=== PATIENT | male | born 1980 | race Caucasian/White ===

== ENCOUNTER 2024-07-19 11:59 | Emergency (ER) | payer OTHER, SELFPAY ==
[2024-07-19] VITALS (14 sets, daily range): BP systolic 104–162; BP diastolic 71–99
--- NOTE | 2024-07-19 12:25 | ED.GENMED ---
History of Present Illness
<SUSANA Royal - Last Filed: 07/19/24 17:35>
General
Chief Complaint: Chest Pain
Source: patient
Time Seen by Provider: 07/19/24 12:25
Nursing documentation reviewed up to this point in time: agreed with
History of Present Illness
History of Present Illness:
44 yr old male presents to the ER for evaluation. Patient does have a history of migraines hypertension hyperlipidemia and reports a 30 this morning he was at work and started to get blurry vision and could not read and fell like he is getting a
migraine. He reports he has not had 1 in about 10 years. He then developed a frontal headache. He went home he took sumatriptan and then vomited. Since then patient complains of feeling nauseous headache dizzy. He also describes a sensation of
not being able to breathe when he wakes up. He describes falling asleep at home prior to arrival and would wake up gasping for air. He denies any associated chest pain. He did feel heaviness in his arms and tingling prior to arrival.
Patient presents to the ER with eyes closed will open upon command however complaining of feeling nauseous headache and tired. He does complain of light sensitivity. He denies any trauma or neck pain. Denies any recent chiropractor manipulation.
He denies any back pain double vision. Denies recent injury.
Past History
<SUSANA Royal - Last Filed: 07/19/24 17:35>
Past History
ED Past Medical History: HTN, Hypercholesterolemia, Other (Obesity) and Other (migraines)
ED Past Surgical History: Orthopedic
Social History
Tobacco: Other (Occasional smoker)
Alcohol: Occasional
Personal:
Living: with family
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
Family History
Family History: Hypertension; Negative Early CAD
Review of Systems
<SUSANA Royal - Last Filed: 07/19/24 17:35>
Review of Systems
Allergies reviewed?: Yes
Other source history: family
All Other Systems: ROS reviewed and negative except as documented in HPI and ROS
Constitutional: Reports no symptoms
Respiratory: Reports other ('will wake up from sleep and gasp for air ')
Cardiac: Reports no symptoms
ABD/GI: Reports nausea and vomiting
: Reports no symptoms
Musculoskeletal: Reports no symptoms
Neurological: Reports headache
Phy Exam
<SUSANA Roayl - Last Filed: 07/19/24 17:35>
General Physical Exam
General Presentation: no apparent distress
General age: appears stated age
General Skin: warm and dry
General Habitus: normal
General Mental: alert
General Hydration: appears well hydrated
Cardiovascular Exam
Cardiovascular Exam: regular rate/rhythm, no murmur and normal peripheral pulses
Pulmonary Exam
Pulmonary Exam: lungs clear and no respiratory distress
Neurological Exam
Neurological Exam: alert, oriented x3, no motor deficits, no sensory deficits and speech normal
Musculoskeletal Exam
Musculoskeletal Exam: full ROM
Skin Exam
Skin Exam: normal color and warm/dry
Psychiatric Exam
Psychiatric Exam: normal mood/affect
Scores
<SUSANA Royal - Last Filed: 07/19/24 17:35>
Heart Score for Chest Pain Patients
STEMI patient?: Not applicable
Course
<SUSANA Royal - Last Filed: 07/19/24 17:35>
Orders/Labs/Results
Orders:
Orders
07/19/24 12:00
Electrocardiogram (*1) Urgent
Reason for Study: Chest Pain
EKG- Treatment ONCE
07/19/24 12:19
Complete Blood Count/With Diff Urgent
Comprehensive Metabolic Panel Urgent
NT-proBNP Urgent
Comment: ADD ON
Troponin I Urgent
07/19/24 12:25
Add On- LAB Urgent
Tests Added?: BNP
07/19/24 12:35
Ondansetron Injectable [Zofran] 4 mg .ROUTE .STK-MED ONE
Ondansetron Injectable [Zofran] 4 mg .ROUTE .STK-MED ONE
07/19/24 12:38
CT Head W/o Iv Contrast Urgent
Comment:
Reason For Exam: headache
07/19/24 12:39
Ondansetron Injectable [Zofran] 4 mg IV NOW STA
07/19/24 12:42
Metoclopramide [Reglan] 10 mg IV NOW STA
07/19/24 12:43
0.9% Sodium Chloride 1000 ml [Nss] 1,000 ml IV BOLUS
Diphenhydramine [Benadryl] 25 mg IV NOW STA
07/19/24 12:47
Portable Chest Xray [CR Chest Portable - 1 View] Urgent
Comment:
Reason For Exam: sob
Reason Study Needs to be Portable: Unable to Transport
07/19/24 14:28
Dexamethasone Sod Phosphate [Decadron] 10 mg IV NOW STA
Ketorolac [Toradol] 15 mg IV NOW STA
Magnesium Sulfate 2 Gram/50 ml [Magnesium Sulfate] 2 gram in 50 ml IV NOW
07/19/24 16:21
NEUROLOGY CONSULT Urgent
Consulting Provider: Esteban Renteria
Was physician already notified: Yes
Abnormal Lab Results
07/19/24
12:19
MCH 31.2 H pg
(27.0-31.0)
MPV 10.7 H fL
(7.4-10.4)
Carbon Dioxide 20 L mmol/L
(22-30)
BUN 21 H mg/dl
(9-20)
Glucose 149 H mg/dl
(70-99)
Total Bilirubin 1.6 H mg/dl
(0.2-1.3)
07/19/24 12:19
07/19/24 12:19
Vital Signs
Initial and Last Documented VS:
Initial Vital Signs
Temp Pulse Resp BP Pulse Ox
98.0 F 76 16 139/79 98
07/19/24 12:05 07/19/24 12:05 07/19/24 12:05 07/19/24 12:05 07/19/24 12:05
Last Documented Vital Signs
Temp Pulse Resp BP Pulse Ox
98.0 F 66 26 161/83 98
07/19/24 12:05 07/19/24 16:00 07/19/24 16:00 07/19/24 16:00 07/19/24 12:05
Hand Edger consulted with Physician
Hand Edger consulted with physician?: Yes
Name of Physician Consulted: Monalisa
<Juan Sheldon MD - Last Filed: 07/19/24 14:33>
Orders/Labs/Results
Orders:
Orders
07/19/24 12:00
Electrocardiogram (*1) Urgent
Reason for Study: Chest Pain
EKG- Treatment ONCE
07/19/24 12:19
Complete Blood Count/With Diff Urgent
Comprehensive Metabolic Panel Urgent
NT-proBNP Urgent
Comment: ADD ON
Troponin I Urgent
07/19/24 12:25
Add On- LAB Urgent
Tests Added?: BNP
07/19/24 12:35
Ondansetron Injectable [Zofran] 4 mg .ROUTE .STK-MED ONE
Ondansetron Injectable [Zofran] 4 mg .ROUTE .STK-MED ONE
07/19/24 12:38
CT Head W/o Iv Contrast Urgent
Comment:
Reason For Exam: headache
07/19/24 12:39
Ondansetron Injectable [Zofran] 4 mg IV NOW STA
07/19/24 12:42
Metoclopramide [Reglan] 10 mg IV NOW STA
07/19/24 12:43
0.9% Sodium Chloride 1000 ml [Nss] 1,000 ml IV BOLUS
Diphenhydramine [Benadryl] 25 mg IV NOW STA
07/19/24 12:47
Portable Chest Xray [CR Chest Portable - 1 View] Urgent
Comment:
Reason For Exam: sob
Reason Study Needs to be Portable: Unable to Transport
07/19/24 14:28
Dexamethasone Sod Phosphate [Decadron] 10 mg IV NOW STA
Ketorolac [Toradol] 15 mg IV NOW STA
Magnesium Sulfate 2 Gram/50 ml [Magnesium Sulfate] 2 gram in 50 ml IV NOW
07/19/24 16:21
NEUROLOGY CONSULT Urgent
Consulting Provider: Esteban Renteria
Was physician already notified: Yes
Abnormal Lab Results
07/19/24
12:19
MCH 31.2 H pg
(27.0-31.0)
MPV 10.7 H fL
(7.4-10.4)
Carbon Dioxide 20 L mmol/L
(22-30)
BUN 21 H mg/dl
(9-20)
Glucose 149 H mg/dl
(70-99)
Total Bilirubin 1.6 H mg/dl
(0.2-1.3)
07/19/24 12:19
07/19/24 12:19
Vital Signs
Initial and Last Documented VS:
Initial Vital Signs
Temp Pulse Resp BP Pulse Ox
98.0 F 76 16 139/79 98
07/19/24 12:05 07/19/24 12:05 07/19/24 12:05 07/19/24 12:05 07/19/24 12:05
Last Documented Vital Signs
Temp Pulse Resp BP Pulse Ox
98.0 F 66 26 161/83 98
07/19/24 12:05 07/19/24 16:00 07/19/24 16:00 07/19/24 16:00 07/19/24 12:05
<SUSANA Royal - Last Filed: 07/19/24 17:35>
MDM/Problems Addressed
Differential Diagnosis Includes:
Not limited to migraine headache less likely intracranial hemorrhage
MDM/Problems Addressed:
Patient is document is a 44-year-old male who presented to the ER for evaluation. Patient does have a history of migraine however has not had a migraine headache in about 10 years. He presented very uncomfortable reported visual changes this
morning consistent with migraine and then developed a frontal headache. He was very nauseous and did vomit at home despite taking migraine medicine. He reported to the nurses that he felt short of breath however he describes this as sleeping
waking up from sleep and then feeling that he needs to gasp from air. He presented to the ER denying any shortness of breath on my exam lungs are clear he is nontachycardic nonhypoxic.. He had no complaints of chest pain. He had no trauma no
fevers. No neck pain noted just was on exam. Patient was eval by ED physician patient was treated for migraine, given Reglan Benadryl fluids however still had symptoms and was given steroids and magnesium.
On reexam patient does report that he feels better but reports still has the headache. pt was evaluated by DR Whitehead who inserted /sprayed marcaine in pt's nares.
pt feeling better on re-exam stable for d/c home.
Chronic conditions affecting care:
htn, migraines
<SUSANA Royal - Last Filed: 07/19/24 17:35>
*Radiology
Radiology exam reviewed: radiology read reviewed
*Pulse Oximetry
Patient hypoxic: no
*EKG
Interpreted by ED Provider?: Yes
Heart Rate: 75
Rate: normal
Rhythm: sinus
Ischemia: no ischemia
*Critical Care Note
Total Time (30-74mins, 75-104mins- exclusive of procedures): Not Applicable
ED Attending Note
<SUSANA Royal - Last Filed: 07/19/24 17:35>
-
Portions of this chart may have been created with voice recognition software.� Occasional wrong word or��sound alike� substitutions may have occurred due to the inherent limitations of voice recognition software.
<Juan Sheldon MD - Last Filed: 07/19/24 14:33>
ED Attending Note
Patient seen and examined by attending physician: Yes
ED Attending Note:
I have seen and evaluated the patient with a [id number] encounter. I have spoken to the advance practicer provider and involved in the medical history, the physical exam, medical decision making.
Evaluation and management service: agree unless noted differently below.
Results interpretation: agree unless noted differently below.
Focused HPI: 44-year-old male with a past medical history of hypertension, hyperlipidemia, migraines presents to the emergency room with his spouse for evaluation of headache. Patient reports that he was in his normal state of health when he woke
up this morning. He says around 8 AM he started to get visual aura and subsequently developed intense headache. He has a known history of migraines and he says that this is consistent with prior migraines however headache became very severe. He
says rarely does it escalate to the point that he feels the need to go to the ER�last had to come to the ER he says about 10 years ago. He started to get nausea and vomiting. He said while he was vomiting he started to feel like he was gasping for
air and was having some chest discomfort. He did take sumatriptan at around 8:30 AM shortly after onset of symptoms but symptoms were progressing which prompted him to come to the ER. Since arrival in the ER he did receive some Zofran he says
nausea has improved. He no longer feels any shortness of breath or chest discomfort now that nausea/vomiting has improved. He still has an intense headache however. He describes a frontal pressure sensation. Denies vision loss, focal weakness or
numbness or other complaints.
Physical exam: Sitting in a dark room with his eyes closed. Vital signs significant for marginal hypertension. Head is normocephalic and atraumatic. His pupils are equal round and reactive to light bilaterally, extraocular movements are intact.
Cranial nerves intact 2 through 12. Speech fluid no dysarthria or aphasia, motor and sensory intact in all extremities. He has no cardiac rubs gallops or murmurs and his lung sounds clear to auscultation bilaterally.
Medical Decision Makin-year-old male with history of migraines presents with severe headache consistent with prior migraines but more intense than usual. Last similar episode was about 10 years ago. Did not respond to sumatriptan at home. He
did have some transient shortness of breath/chest discomfort associated with nausea/vomiting but this has resolved. Vitals and exam as above. Labs sent off in triage including a CBC and a CMP which showed no clinically significant abnormalities.
He had a troponin which was undetectable. EKG shows sinus rhythm. Sent for CT head which shows no acute disease. Chest x-ray shows no pneumonia or signs of significant aspiration and lungs sound clear. Suspect that this is migraine headache.
Will plan to treat symptomatically and reassess.
Discharge Plan
Departure
Patient Disposition: Home (Routine Discharge)
Date of Disposition: 07/19/24
Time of Disposition: 17:28
Patient with high blood pressure during this ER visit?: Yes
Condition: Fair
Covid-19: Not Applicable
Discharge Problem:
Migraine
Instructions: Migraine in adults, BLOOD PRESSURE
Prescriptions:
No Action
atorvastatin [Lipitor] 10 mg Tablet
10 mg PO DAILY
sumatriptan succinate [Imitrex] 50 mg Tablet
0 mg PO .COMPLEX
Rx Instructions:
take 1 tab at onset of headache; if no relief may repeat 1 tab after at least 2 hrs; max = 4 tabs/24 hr
Centrum 9 mg iron/ 15 mL (15 mL) Liquid
15 ml PO QPM
Referrals:
Emory Li MD [Family Provider] -
Esteban Renteria MD [Active] -
Activity Restrictions/Additional Instructions:
As discussed please follow-up with both your family doctor as well as neurology for reevaluation of migraines. Return if any worsening of symptoms
Interventions
Interventions:
*Risk Screen - Suicide Last Done: 07/19/24 12:05
*General Assessment Last Done: 07/19/24 12:21
*Neglect/Abuse Screening Last Done: 07/19/24 12:05
*ED- Fall Risk Assessment Last Done: 07/19/24 12:21
ED- Cardiac Assessment Last Done: 07/19/24 12:21
Discharge Date and Time
Print Language: DANISH
[2024-07-19 12:30] LABS: % Basophils 0.2 % (0-2); % Eosinophils 0.3 % (0-6); % Immature Granulocytes 0.3 % (0-0.5); % Lymphocytes 30.1 % (20.5-51.1); % Monocytes 6.7 % (1.7-9.3); % Neutrophils 62.4 % (42.2-75.2); Absolute Lymphocytes 2.9 10^3/uL (1.2-3.4); Absolute Monocytes 0.6 10^3/uL (0.1-0.6); Absolute Neutrophils 5.9 10^3/uL (1.4-6.5); Hematocrit 45.5 % (39.0-52.0); Hemoglobin 16.3 g/dL (13.0-18.0); Mean Corp Hgb Conc. 35.8 g/dL (33.0-37.0); Mean Corpuscular Hgb 31.2 pg (27.0-31.0); Mean Platelet Volume 10.7 fL (7.4-10.4); Nucleated Red Blood Cells % 0 % (-); Platelet Count 210 10^3/uL (130-400); Red Blood Cell Count 5.23 10^6/uL (4.70-6.10); Red Cell Dist. Width 12.1 % (11.5-14.5); White Blood Cell Count 9.5 10^3/uL (4.8-10.8)
[2024-07-19] MEDS: ZOFRAN 4 MG IV (12:39)
[2024-07-19 12:45] LABS: ALT (SGPT) 32 U/L (0-50); AST (SGOT) 28 U/L (17-59); Albumin 4.6 g/dl (3.5-5.0); Alkaline Phosphatase 111 U/L (38-126); Blood Urea Nitrogen 21 mg/dl (9-20); Calcium 9.7 mg/dl (8.4-10.2); Carbon Dioxide 20 mmol/L (22-30); Chloride 107 mmol/L (98-107); Glucose 149 mg/dl (70-99); Potassium 3.8 mmol/L (3.5-5.1); Sodium 140 mmol/L (135-145); Total Bilirubin 1.6 mg/dl (0.2-1.3); Total Protein 7.5 g/dl (6.3-8.2); eGFR > 60.00
[2024-07-19 12:49] LABS: Troponin I < 0.012 ng/ml
[2024-07-19 13:28] LABS: NT-proBNP < 20.0 pg/ml
[2024-07-19] MEDS: NSS 1000 IV (13:38)
[2024-07-19] MEDS: BENADRYL 25 MG IV (13:38)
[2024-07-19] MEDS: REGLAN 10 MG IV (13:40)
[2024-07-19] MEDS: MAGNESIUM SULFATE 50 IV (14:55)
[2024-07-19] MEDS: DECADRON 10 MG IV (14:56)
[2024-07-19] MEDS: TORADOL 15 MG IV (14:56)
--- NOTE | 2024-07-19 17:24 | CON.NEURO ---
Neuro Assessment/Plan
Assessment
intractable migraine
performed SPG block (using syringe with plastic IV catheter, sprayed 0.75 cc of bupivacaine 0.5 each nostril)
no role for imaging unless focal symptom/deficit or substantial increase in frequency/severity/duration
Plan
d/c home
Consultation
Order
Date of Consultation: 07/19/24
Requesting Provider: Juan Sheldon Jr
Reason for Consult: migraine
Subjective/Objective
Subjective Data
Date of Service: July 19, 2024
44 year old man with intractable migraine. Usually 1 migraine per month lasting 4-6 hrs and responds to OTC analgesics and sleep; last seen in ED for migraines 10 years ago
This morning, had a severe migraine with visual aura and mild tingling in left hand. no response to home OTC analgesics, sumatriptan.
In ED substantially improved after IV toradol, reglan, benadryl, magnesium, and dexamethasone
now having retro orbital pain bilaterally moderate severity
Objective Data
Vital Signs
Temp Pulse Resp BP Pulse Ox
36.7 C 66 26 161/83 98
07/19/24 12:05 07/19/24 16:00 07/19/24 16:00 07/19/24 16:00 07/19/24 12:05
Lab Results
07/19/24 12:19
07/19/24 12:19
Sodium 140 mmol/L (135-145) 07/19/24 12:19
Potassium 3.8 mmol/L (3.5-5.1) 07/19/24 12:19
BUN 21 mg/dl (9-20) H 07/19/24 12:19
Glucose 149 mg/dl (70-99) H 07/19/24 12:19
Calcium 9.7 mg/dl (8.4-10.2) 07/19/24 12:19
Ofo-S-Bhqykxbeqhx Pept < 20.0 pg/ml 07/19/24 12:19
Patient Allergies
No Known Allergies Allergy (Verified 07/19/24 12:06)
Physical Exam
-
AAOx3, speech clear, language intact
VFF, EOMI, face symmetric
full strength b/l UE/LE, no pronator drift
sensation intact to touch temp and vibration
DTR normal and symmetric
Medications
-
Home Medications
�Medication �Instructions �Recorded
atorvastatin 10 mg tablet (Lipitor) 10 mg PO DAILY 07/19/24
sjqomlvs-kfgi-ssutrox gluconate 9 15 ml PO QPM 07/19/24
mg iron/15 mL (15 mL) oral liquid
(Centrum)
sumatriptan succinate 50 mg tablet 0 mg PO .COMPLEX 07/19/24
(Imitrex)
== END 2024-07-19 17:59 | disposition home or self-care (01) ==
LOC: EMR 11:59
PROVIDERS: Emergency Medicine; CONSULT PHYSICIAN Psychiatry & Neurology Clinical Neurophysiology; EMERGENCY PHYSICIAN Emergency Medicine; FAMILY PHYSICIAN Family Medicine
DX: R07.89 Other chest pain (principal); I10 Essential (primary) hypertension; E78.00 Pure hypercholesterolemia, unspecified; E66.9 Obesity, unspecified; F17.200 Nicotine dependence, unspecified, uncomplicated; Z79.899 Other long term (current) drug therapy; Z82.49 Family history of ischemic heart disease and other diseases of the circulatory system
CPT/HCPCS: 99284; 96365; 96375; 96361; 70450; 71045; 80053; 83880; 84484; 85025; 93005